=== PATIENT | female | born 1955 | race Caucasian/White ===

== ENCOUNTER 2016-07-23 14:21 | Emergency (ER) | payer OTHER | END 2016-07-23 16:35 | disposition home or self-care (01) | LOC: D.ER 14:21 | DX: R06.02 Shortness of breath (principal); M79.604 Pain in right leg; M25.561 Pain in right knee; M54.5 Low back pain; R07.9 Chest pain, unspecified; R05 Cough; V89.2XXA Person injured in unspecified motor-vehicle accident, traffic, initial encounter; Y93.89 Activity, other specified; Y92.410 Unspecified street and highway as the place of occurrence of the external cause ==

== ENCOUNTER → 2017-01-18 14:07 | Outpatient (CLI) | payer MEDICARE, OTHER ==
[2017-01-18 15:03] LABS: BASOPHILS 0.3 % (0-2); EOSINOPHILS 1.1 % (0-7); IMMATURE GRANULOCYTES 0.3 % (0-5); LYMPHOCYTES 43.2 % (15-50); MCH 31.4 pg (26.0-34.0); MCHC 34.1 g/dL (31.0-37.0); MCV 92.1 fL (80.0-100.0); MEAN PLATELET VOLUME 10.9 fL (7.4-10.4); MONOCYTES 3.9 % (2-11); NEUTROPHILS 51.2 % (40-80); PLATELET COUNT 287 10x3/uL (130-400); RBC 4.78 10x6/uL (4.00-5.40); RDW 13.1 % (11.5-14.5); WBC 15.2 10x3/uL (4.8-10.8)
[2017-01-18 16:02] LABS: ERYTHROCYTE SEDIMENTATION RATE 13 mm/hr (0-30)
== END | disposition home or self-care (01) ==
LOC: D.LAB 14:07
PROVIDERS: Orthopaedic Surgery
DX: T84.033A Mechanical loosening of internal left knee prosthetic joint, initial encounter (principal)

== ENCOUNTER 2018-07-12 08:54 | Outpatient (CLI) | payer MEDICARE, OTHER ==
[~2018-07-12] VITALS: Ht 162.6 cm; Wt 84.1 kg
--- NOTE | ~2018-07-12 | HEMODYNAMI ---
PATIENT:MAYNOR DUARTE MEDICAL RECORD: [id number] : 57 [id number] ADMISSION DATE: 07/12/18 Generatedon:07/12/201812:11 Patient name: MAYNOR DUARTE Patient #: [id number] SSN: : 1955 Date of study: 07/12/2018 Page: Of Hemodynamic Procedure Report Patient Data Patient Demographics Procedure consent was obtained First Name: MAYNOR Gender: Female Last Name: FELICIA : 1955 [facility] Initial: A Age: 63 year(s) Patient #: [id number] Race: Unknown Additional ID: [id number] Contact details [address]: [address] [place] [address] State: [place] City: [place] Zip code: [address] Past Medical History Allergies Allergen Reaction Date Comments Reported Other allergy 07/12/2018 PREDNISONE AND PCN Admission Admission Data Admission Date: 07/12/2018 Admission Time: 8:54 Procedure Procedure Types Cath Procedure Peripheral Cath Diagnostic Procedure Bone Biopsy Deep Procedure Description Procedure Date Procedure Date: 07/12/2018 Procedure Start Time: 11:38 Procedure Staff Name Function West Costello MD Performing Physician Jg Gamboa RT Monitor Nae Valdes RT Scrub Sherrie Miles RN Nurse Procedure Data Cath Procedure Fluoroscopy Diagnostic fluoroscopy Total fluoroscopy Time: 1.1 time: 1.1 min min Diagnostic fluoroscopy Total fluoroscopy dose: 86 dose: 86 mGy mGy Procedure Medications Medication Administration Route Dosage Versed I.V. 2 mg Fentanyl I.V. 100 mcg Benadryl I.V. 50 mg Versed I.V. 2 mg Fentanyl I.V. 100 mcg Lidocaine 1% added to field 20 Heparin Flush Bag added to field 1 bags (1000units/500ml NS) Hemodynamics Rest Heart Rate: 87 (bpm) Snapshots Pre Cath Intra NCS Post Cath Vital Signs Time Heart Resp SPO2 etCO2 NIBP (mmHg) Rhythm Pain Sedation Rate (ipm) (%) (mmHg) Status Level (bpm) 11:16:51 103 20 98 24.8 162/75(132) NSR 0 (11) 10(A) , No pain 11:21:50 105 15 98 1.5 Measuring NSR 0 (11) 10(A) , No pain 11:22:13 105 22 99 0.7 161/89(93) NSR 0 (11) 10(A) , No pain 11:26:41 98 19 99 12.8 153/84(100) NSR 0 (11) 10(A) , No pain 11:31:40 98 11 99 20.3 Measuring NSR 0 (11) 10(A) , No pain 11:32:50 97 13 99 30.9 137/112(131) NSR 0 (11) 9(A) , No pain 11:37:08 96 50 99 44.5 142/80(102) NSR 0 (11) 9(A) , No pain 11:41:26 96 17 98 30.1 117/63(91) NSR 0 (11) 9(A) , No pain 11:45:50 99 11 98 48.9 103/36(87) NSR 0 (11) 8(A) , No pain 11:49:31 102 10 98 45.9 111/64(85) NSR 0 (11) 10(A) , No pain 11:53:45 103 19 97 48.2 119/62(83) NSR 0 (11) 10(A) , No pain 11:58:45 103 15 98 41.4 Measuring NSR 0 (11) 10(A) , No pain 11:58:57 102 14 98 44.4 119/57(81) NSR 0 (11) 10(A) , No pain 12:03:07 102 17 98 43.7 132/80(90) NSR 0 (11) 10(A) , No pain 12:07:06 0 No Cuff NSR 0 (11) 10(A) , No pain 12:11:06 0 No Cuff NSR 0 (11) 10(A) , No pain Medications Time Medication Route Dose Verified Delivered Reason Notes Effe ctiveness by by 11:33:31 Versed I.V. 2 mg [place] for Pravin Miles RN sedation 11:33:42 Fentanyl I.V. 100 [place] for mcg Pravin Miles RN sedation 11:41:37 Benadryl I.V. 50 mg [place] for Pravin Miles RN sedation 11:41:46 Versed I.V. 2 mg [place] for Pravin Miles RN sedation 11:41:53 Fentanyl I.V. 100 [place] for mcg Pravin Miles RN sedation 11:46:57 Lidocaine 1% added 20ml [place] for local to vial Pravin Costello anesthetic field MD LEBRON 11:47:12 Heparin Flush added 1 [place] used for Bag to bags Pravin Costello procedure (1000units/500ml field MD LEBRON NS) Procedure Log Time Note 11:05:20 Jg Amatolily RT (R) (CV) sent for patient. Start room use. 11:05:32 Time tracking: Regular hours (M-F 7:00 - 5:00) 11:05:37 Plan of Care:Hemodynamics will remain stable., Cardiac rhythm will remain stable., Comfort level will be maintained., Respiratory function will remain adequate., Patient/ family verbilizes understanding of procedure., Procedure tolerated without complication., Recovers from procedure without complications.. 11:05:44 Patient received from Outpatients to IR Alert and oriented. Tansferred to table in Prone position. 11:05:45 Correct patient and procedure confirmed by team. 11:05:46 ECG and BP/O2 sat monitors applied to patient. 11:05:48 Signed procedure consent form obtained from patient. 11:05:49 Full Disclosure recording started 11:05:50 - 11:05:53 H&P Date Dictated: 07/12/2018 H&P Addendum completed by physician on day of procedure. (MUST COMPLETE FOR ALL OUTPATIENTS). 11:05:54 Pre-procedure instructions explained to patient. 11:05:55 Pre-op teaching completed and patient verbalized understanding. 11:05:57 Family in waiting room. 11:05:59 Patient NPO since Midnight. 11:06:21 Patient allergic to Other allergyPREDNISONE AND PCN 11:06:26 Is the patient allergic to Iodine/contrast media? No. 11:06:28 Is patient on blood thinner?No 11:06:31 Patient diabetic? Yes. 11:06:33 If diabetic: On Metformin? Yes 11:06:40 If on Metformin: Last Dose? 07/12/2018 11:06:43 - 11:06:44 ----Pre-sedation anethsthesia assessment.---- 11:06:49 Previous problem with sedation/anesthesia? No ? 11:06:54 Snore? Yes 11:07:02 Sleep apnea? No 11:07:06 Deviated septum? No 11:07:06 Opens mouth fully? Yes 11:07:09 Sticks out tongue? Yes 11:07:18 Airway obstruction? No ? 11:07:26 Dentures? No ? 11:07:36 IV patent on arrival in left forearm with 0.9% NaCl at [facility]. 11:07:37 Sharps counted by scrub and verified by R.N. 11:07:38 Alarms reviewed by R. N. 11:07:46 Right Lumbar was prepped with chlora-prep and draped in sterile fashion . 11:07:51 Use device set IR Diagnostic 11:07:53 Sterile Angiographic Pack opened to sterile field. 11:07:54 Bag Decanter (2002S) opened to sterile field. 11:07:54 Tegaderm 4 x 4 ([id number]) opened to sterile field. 11:15:26 Vital chart was started 11:15:50 Baseline sample Acquired. 11:32:11 Physician arrived 11:32:11 --------ALL STOP TIME OUT------ 11:32:12 Final Timeout: patient, procedure, and site verified with staff and physician. All members of the team are in agreement. 11:32:16 Lumbar site verified by team. 11:32:23 Fire Safety Assessment: A--An alcohol-based skin anteseptic being used preoperatively., C--Open oxygen or nitrous oxide is being used. 11:32:26 Sedation plan: IV Moderate Sedation Medication:Versed, Fentanyl 11:32:37 Procedure started. 11:33:31 Versed 2 mg I.V. was administered by Sherrie Miles RN; for sedation; 11:33:42 Fentanyl 100 mcg I.V. was administered by Sherrie Miles RN; for sedation; 11:35:10 Baseline sample Acquired. 11:38:56 Local anesthetic to Lumbar area with Lidocaine 1% by West Costello MD.INITIAL ACCESS ONLY 11:41:37 Benadryl 50 mg I.V. was administered by Sherrie Miles RN; for sedation; 11:41:46 Versed 2 mg I.V. was administered by Sherrie Miles RN; for sedation; 11:41:53 Fentanyl 100 mcg I.V. was administered by Sherrie Miles RN; for sedation; 11:46:57 Lidocaine 1% 20ml vial added to field was administered by West ospina MD; for local anesthetic; 11:47:12 Heparin Flush Bag (1000units/500ml NS) 1 bags added to field was administered by West Costello MD; used for procedure; 11:49:14 Needle Tray Arrow On Control BMB 11 g x 4.0 inch opened to sterile field. 11:56:26 UNABLE TO DO PROCEDURE PT MOVING WANTS TO DO IN CT AND USE ANESTHESIA 11:56:35 Procedure ended.(Physican Out) 12:00:26 Fluoroscopy time 01.10 minutes. 12:01:46 Flurop Dose total: 86 12:01:46 Fluoroscopy dose: 86 mGy 12:01:51 Sharps counted by scrub and verified by R.N. 12:01:52 Insertion/operative site no bleeding no hematoma. 12:01:57 Post-op/insertion site Left Lumbar area dressed using a 4 x 4 and Tegaderm. 12:03:38 Post procedure instruction explained to patient.Patient verbalizes understanding. 12:03:41 Procedure and supply charges have been captured, reviewed, submitted an d are correct. 12:11:00 Report given to Outpatients. 12:11:05 Patient transfered to Outpatients with Stretcher. 12:11:38 Vital chart was stopped Device Usage Item Name Manufacture Quantity Catalog Hospital Part Current Minima l Lot# / Number Charge Number Stock Stock Serial# Code Sterile Cardinal 1 [id number] 5 Angiographic Health Pack Bag Decanter Microtek 1 [id number] (2001S) [employer] Tegaderm 4 x 3M 1 [id number] 4 ([id number]) Needle Tray Teleflex 1 [id number] Arrow On Control BMB 11 g x 4.0 inch Signature Audit Inola Stage Time Signature Unsigned Intra-Procedure 07/12/2018 Jg 12:11:33 PM Bee RT (R) (CV) Signatures Monitor : Jg Signature : Bee RT Date : Time : [id number] [place] [address]
[2018-07-12] MEDS ORDERED: GLUCOTROL 5 MG T5 MG PO (10:14)
[2018-07-12] MEDS ORDERED: LISINOPRIL10 MG PO (10:14)
[2018-07-12] MEDS ORDERED: OXYCONTIN10 MG PO (10:26)
[2018-07-12] MEDS ORDERED: CYMBALTA60 MG PO (10:26)
[2018-07-12] MEDS ORDERED: PRAVACHOL20 MG PO (10:29)
[2018-07-12] MEDS ORDERED: ZANAFLEX2 M1 PO (10:37)
[2018-07-12 10:41] LABS: BASOPHILS 0.4 % (0-2); HEMATOCRIT 40.5 % (36.0-48.0); HEMOGLOBIN 13.8 g/dL (12-16); IMMATURE GRANULOCYTES 0.4 % (0-5); LYMPHOCYTES 36.6 % (15-50); MCH 30.9 pg (26.0-34.0); MCHC 34.1 g/dL (31.0-37.0); MCV 90.6 fL (80.0-100.0); MEAN PLATELET VOLUME 9.9 fL (7.4-10.4); NEUTROPHILS 56.6 % (40-80); PLATELET COUNT 268 10x3/uL (130-400); RBC 4.47 10x6/uL (4.00-5.40); RDW 13.2 % (11.5-14.5); WBC 14.1 10x3/uL (4.8-10.8)
[2018-07-12 10:46] VITALS: BP 153/96; Ht 162.6 cm; Wt 84.1 kg
[2018-07-12 10:59] LABS: INR 0.93 (0.85-1.17)
[2018-07-12 11:04] LABS: ANION GAP 14.3 mmol/L (8-16); CALCIUM 8.4 mg/dL (8.5-10.1); CARBON DIOXIDE 28.1 mmol/L (21.0-32.0); CREATININE - SERUM 0.9 mg/dL (0.6-1.3); POTASSIUM - SERUM 3.4 mmol/L (3.5-5.1)
--- NOTE | 2018-07-12 12:45 | NUR ---
DISCHARGE INSTRUCTIONS REVIEWED WITH PATIENT. PATIENT UPSET THAT PROCEDURE WAS UNABLE TO BE DONE TODAY, UPSET THAT SHE WILL HAVE TO KEEP WAITING FOR ANSWERS ABOUT HER CONDITION. PATIENT REASSURED. AWAITING ORDERED DISCHARGE TIME.
== END 2018-07-12 13:06 | disposition home or self-care (01) ==
LOC: D.SP 08:54 → D.CT 08:54 → D.SP 13:06
PROVIDERS: Radiology Diagnostic Radiology; ATTEND Legal Medicine
DX: C91.00 Acute lymphoblastic leukemia not having achieved remission (principal); Z53.09 Procedure and treatment not carried out because of other contraindication; F11.20 Opioid dependence, uncomplicated; Z01.812 Encounter for preprocedural laboratory examination